=== PATIENT | male | born 1985 | race Caucasian/White ===

== ENCOUNTER 2017-01-26 17:15 | Emergency (ER) | payer MEDICAID ==
--- NOTE | 2017-01-26 18:38 | ED PDOC ---
HPI: Male Pain Time Seen by Provider: 01/26/17 17:43 Chief Complaint (Nursing): Abdominal Pain History Per: Patient History/Exam Limitations: no limitations Onset/Duration Of Symptoms: Days (3), Gradual Current Symptoms Are (Timing): Still Present Severity: Mild Quality Of Discomfort: Dull, Aching Associated Symptoms: denies: Fever, Chills, Nausea, Vomiting, Diarrhea, Loss Of Appetite, Back Pain, Chest Pain, Constipation, Urinary Symptoms Alleviating Factors: None Additional History Per: Patient Additional Complaint(s): Patient complaining of lower abdominal pain in suprapubic area. Pain is worse with urination and ambulating pressure, no trauma no prev sx nothing makes it better. initially mod pain now is mild. no penile discharge, testicular pain or swelling Past Medical History Reviewed: Historical Data, Nursing Documentation, Vital Signs Vital Signs: Last Vital Signs Temp 98.4 F 01/26/17 17:33 Pulse 94 H 01/26/17 17:33 Resp 18 01/26/17 17:33 BP 152/78 H 01/26/17 17:33 Pulse Ox 100 01/26/17 17:33 - Medical History PMH: No Chronic Diseases - Surgical History Surgical History: Appendectomy - Family History Family History: States: Unknown Family Hx - Living Arrangements Living Arrangements: With Family - Home Medications Home Medications: Ambulatory Orders Medication Instructions Recorded Naproxen [Naprosyn] 500 mg PO BID PRN #30 tab 12/29/15 Penicillin V Potassium 500 mg PO Q6 #40 tablet 12/29/15 Hydrocodone/Acetaminophen [[place] 1 each PO QID PRN #20 tablet 01/26/17 5-325 Tablet] - Allergies Allergies/Adverse Reactions: Allergies Allergy/AdvReac Type Severity Reaction Status Date / Time No Known Allergies Allergy Verified 12/29/15 18:02 Review of Systems ROS Statement: Except As Marked, All Systems Reviewed And Found Negative Constitutional: Negative for: Fever, Chills Cardiovascular: Negative for: Chest Pain, Palpitations Respiratory: Negative for: Cough, Shortness of Breath Gastrointestinal: Positive for: Abdominal Pain. Negative for: Nausea, Vomiting , Diarrhea Genitourinary Male: Positive for: Dysuria. Negative for: Frequency, Incontinence, Hematuria, Penile Discharge, Scrotal Pain, Penile Pain Neurological: Negative for: Weakness, Numbness Physical Exam - Reviewed Nursing Documentation Reviewed: Yes Vital Signs Reviewed: Yes - Physical Exam Appears: Positive for: Well, No Acute Distress Head Exam: Positive for: ATRAUMATIC, NORMAL INSPECTION, NORMOCEPHALIC Eye Exam: Positive for: Normal appearance, EOMI, PERRL Neck: Positive for: Normal, Painless ROM, Supple Cardiovascular/Chest: Positive for: Regular Rate, Rhythm, Chest Non Tender. Negative for: Edema, Gallop Respiratory: Positive for: Normal Breath Sounds. Negative for: Decreased Breath Sounds, Accessory Muscle Use, Crackles, Rales, Rhonchi, Stridor, Wheezing Gastrointestinal/Abdominal: Positive for: Normal Exam, Bowel Sounds, Soft. Negative for: Tenderness Male Genital Exam: Positive for: normal genitalia, no hernia, other (chapreoned by nurse martinez). Negative for: epididymal tenderness, hernia mass, inguinal tenderness, scrotum tenderness (R), scrotum tenderness (L), testicular tenderness (R), testicular tenderness (L), urethral discharge Back: Positive for: Normal Inspection. Negative for: L CVA Tenderness, R CVA Tenderness Extremity: Positive for: Normal ROM. Negative for: Tenderness, Pedal Edema Neurologic/Psych: Positive for: Alert, corporate legal assistant II-XII, Oriented, Gait (steady). Negative for: Motor/Sensory Deficits, Mood/Affect, Aphasia, Facial Droop - Laboratory Results Result Diagrams: 01/26/17 18:39 01/26/17 18:39 Urine dip results: Positive for: Blood (trace). Negative for: Leukocyte Esterase, Nitrate, Ketones, Glucose, Bilirubin, Protein - ECG O2 Sat by Pulse Oximetry: 100 Pulse Ox Interpretation: Normal - Progress ED Course And Treament: labs unremarkable, testicular us no trosion. ct scan of abd and pelvis FINDINGS: Artifacts: Motion artifact degrades image quality. Lower thorax: The heart size is normal. There is minimal atelectasis and scarring at the lung bases. There is a small hiatal hernia. ABDOMEN: Liver: There is focal fatty infiltration liver. Gallbladder and bile ducts: unremarkable Pancreas: unremarkable Spleen: unremarkable Adrenals: unremarkable Kidneys and ureters: unremarkable Stomach and bowel: Stomach is partially distended. Rotation is normal. Small bowel is mildly distended with fluid and air. There is no obstruction. There are multiple clips at the base of the cecum. Appendix is not visualized. There is no pericecal inflammation. Terminal ileum is unremarkable. Colon is incompletely distended which limits evaluation. There is scattered diverticulosis. There is inflammation in the anti-mesenteric fat adjacent to the sigmoid. There is a fatty nodule with surrounding inflammation. Appendix: See stomach and bowel PELVIS: Bladder: unremarkable Reproductive: Seminal vesicles and prostate are unremarkable. ABDOMEN and PELVIS: Intraperitoneal space: There is no free air. There is minimal free fluid in the pelvis in the supravesical soft tissues. Bones/joints: There are no acute osseous abnormalities Soft tissues: There are multiple surgical clips in the left groin. There are clips in the right lower quadrant. There is a small fat-containing umbilical hernia. Vasculature: Vascular structures are unremarkable. Lymph nodes: There is no pathologic adenopathy. There is shotty mesenteric adenopathy. There are mildly prominent inguinal nodes bilaterally. IMPRESSION: Epiploic appendagitis; no renal or ureteral stones or hydronephrosis advise close f/u in medical clinic, advise vicodin for pain, clear liquid. pt agree's with plan and leaves ambulatory and in good spirits. Re-evaluation Time: 20:56 Condition: Improved Disposition - Clinical Impression Clinical Impression: Epiploic appendagitis - Patient ED Disposition Is Patient to be Admitted: No Counseled Patient/Family Regarding: Studies Performed, Diagnosis, Need For Followup, Rx Given - Disposition Referrals: [facility] [Outside] (2 to 3 days) Disposition: Routine/Home Disposition Time: 21:00 Condition: GOOD Prescriptions: Hydrocodone/Acetaminophen [[place] 5-325 Tablet] 1 each PO QID PRN #20 tablet PRN Reason: Pain, Moderate (4-7) Instructions: Acute Abdominal Pain (ED)
[2017-01-26 19:18] LABS: BASO % 0.6 % (0.0-2.0); EOS % 0.4 % (0.0-4.0); LYMPH % 30.4 % (20.0-40.0); MEAN CELL VOLUME 87.1 fl (80.0-94.0); MEAN CORPUSCULAR HEMOGLOBIN 28.9 pg (27.0-31.0); MEAN CORPUSCULAR HGB CONC 33.1 g/dL (33.0-37.0); MEAN PLATELET VOLUME 8.8 fl (7.2-11.7); MONO # 0.6 K/uL (0.0-0.8); MONO % 8.9 % (0.0-10.0); NEUT # 3.9 K/uL (1.8-7.0); NEUT % 59.7 % (50.0-75.0); RED CELL DISTRIBUTION WIDTH 13.4 % (11.5-14.5); WHITE BLOOD COUNT 6.5 K/uL (4.8-10.8)
[2017-01-26 19:33] LABS: ALB/GLOB RATIO 1.3 (1.0-2.1); ALKALINE PHOSPHATASE 88 U/L (38-126); ALT/SGPT 33 U/L (21-72); AST/SGOT 33 U/L (17-59); BILIRUBIN,TOTAL 0.5 mg/dl (0.2-1.3); BLOOD UREA NITROGEN 16 mg/dl (9-20); CALCIUM 9.5 mg/dL (8.4-10.2); CARBON DIOXIDE 28 mmol/L (22-30); CHLORIDE 102 mmol/L (98-107); GFR AFRICAN-AMERICAN > 60; GLUCOSE,RANDOM 92 mg/dL (75-110); LIPASE 33 U/L (23-300); POTASSIUM 3.9 MMOL/L (3.6-5.0); SODIUM 142 mmol/l (132-148); TOTAL PROTEIN 7.5 G/DL (6.3-8.2)
--- NOTE | 2017-01-26 19:43 | US ---
EXAM: US Scrotum CLINICAL HISTORY: 31 years old, male; Pain; Groin pain; Additional info: Right groin pain TECHNIQUE: Real-time ultrasound of the scrotum with color Doppler and image documentation. EXAM DATE/TIME: 01/26/2017 6:35 PM COMPARISON: There are no prior studies for comparison. FINDINGS: Right Right epididymal head measures approximately 13 x 11 mm. There is an 8mm epididymal head cyst. The right testicle measures 4 x 42 x 1.84 x 2.87 cm. Echotexture is uniform. There are no testicular masses.There is expected blood flow on Doppler imaging. There is no hydrocele. There is no varicocele. There is no hernia Left Left epididymal head measures approximately 9 x 11 mm. The left testis measures 4.63 1.77 x 2.73 cm.. There are no testicular masses. There is expected blood flow on Doppler imaging. There is no hydrocele. There is no varicocele. There is no hernia IMPRESSION: Normal testicular ultrasound, incidental right epididymal head cyst
--- NOTE | 2017-01-26 20:01 | CT ---
EXAM: CT Abdomen and Pelvis Without Intravenous Contrast CLINICAL HISTORY: 31 years old, male; Pain; Abdominal pain; Localized; Lower; Prior surgery; Surgery date: 6+ months; Surgery type: Append. Removed. Bilat. Hernia surgery; Additional info: Right groin pain R/O renal stone TECHNIQUE: Axial computed tomography images of the abdomen and pelvis without intravenous contrast. This CT exam was performed using one or more of the following dose reduction techniques: automated exposure control, adjustment of the mA and/or kV according to patient size, and/or use of iterative reconstruction technique. Coronal and sagittal reformatted images were created and reviewed. EXAM DATE/TIME: 01/26/2017 6:35 PM COMPARISON: There are no prior studies for comparison. FINDINGS: Artifacts: Motion artifact degrades image quality. Lower thorax: The heart size is normal. There is minimal atelectasis and scarring at the lung bases. There is a small hiatal hernia. ABDOMEN: Liver: There is focal fatty infiltration liver. Gallbladder and bile ducts: unremarkable Pancreas: unremarkable Spleen: unremarkable Adrenals: unremarkable Kidneys and ureters: unremarkable Stomach and bowel: Stomach is partially distended. Rotation is normal. Small bowel is mildly distended with fluid and air. There is no obstruction. There are multiple clips at the base of the cecum. Appendix is not visualized. There is no pericecal inflammation. Terminal ileum is unremarkable. Colon is incompletely distended which limits evaluation. There is scattered diverticulosis. There is inflammation in the anti-mesenteric fat adjacent to the sigmoid. There is a fatty nodule with surrounding inflammation. Appendix: See stomach and bowel PELVIS: Bladder: unremarkable Reproductive: Seminal vesicles and prostate are unremarkable. ABDOMEN and PELVIS: Intraperitoneal space: There is no free air. There is minimal free fluid in the pelvis in the supravesical soft tissues. Bones/joints: There are no acute osseous abnormalities Soft tissues: There are multiple surgical clips in the left groin. There are clips in the right lower quadrant. There is a small fat-containing umbilical hernia. Vasculature: Vascular structures are unremarkable. Lymph nodes: There is no pathologic adenopathy. There is shotty mesenteric adenopathy. There are mildly prominent inguinal nodes bilaterally. IMPRESSION: Epiploic appendagitis; no renal or ureteral stones or hydronephrosis Additional findings as described above.
[2017-01-26 21:46] VITALS: BP 126/75; PULSE 69; RESP 17; TEMP 98; O2SAT 99
== END 2017-01-26 21:27 | disposition home or self-care (01) ==
LOC: H.ER 17:15
DX: K63.89 Other specified diseases of intestine (principal)